=== PATIENT | male | born 1945 | race Caucasian/White ===

== ENCOUNTER 2021-05-15 07:29 | Emergency (ER) | payer MEDICARE ==
[~2021-05-15] VITALS: Ht 180.3 cm; Wt 70.0 kg
--- NOTE | 2021-05-15 08:09 | NUR ---
THIS IS A 75 YEAR OLD MALE WHO C/O OF SOB, BLOOD IN URINE, FEVER, GAONA X 2DAYS. PT HAS A HX OF COLO-VESICULAR FISTULA. PT PLACED ON [employer] SINUS, CONTINOUS SP02, RA AND CYCLE VS
[2021-05-15] MEDS ORDERED: SODIUM CHLORIDE FLUSH 10ML SYR IVF ONE (09:30)
--- NOTE | 2021-05-15 09:32 | NUR ---
PIV STARTED, DISCUSSED PLAN OF CARE. PT VERBALIZED UNDERSTANDING, WARM BLANKETS GIVEN
[2021-05-15 09:36] LABS: BASOPHILS % (AUTO) 0 % (0-1); EOSINOPHILS % (AUTO) 0 % (1-7); LYMPHOCYTES % (AUTO) 2 % (22-44); MEAN CORPUSCULAR HEMOGLOBIN 31.8 pg (27.5-34.5); MEAN CORPUSCULAR HGB CONC 33.7 g/dL (33.2-36.2); MEAN PLATELET VOLUME 7.9 fL (7.4-10.4); MONOCYTES % (AUTO) 3 % (2-9); NEUTROPHILS % (AUTO) 95 % (42-75); PLATELET COUNT 187 x10^3/uL (130-400); RED BLOOD COUNT 4.77 x10^6/uL (4.38-5.82); RED CELL DISTRIBUTION WIDTH 13.4 % (9.4-14.8)
[2021-05-15 09:50] LABS: ALANINE AMINOTRANSFERASE 40 U/L (12-78); ANION GAP 4 mmol/L (5-15); CALCIUM 8.3 mg/dL (8.5-10.1); CHLORIDE 104 mmol/L (98-107); CREATININE 0.98 mg/dL (0.7-1.3)
[2021-05-15 09:52] LABS: ALKALINE PHOSPHATASE 61 U/L (45-117); BILIRUBIN,TOTAL 2.5 mg/dL (0.2-1.0); TOTAL PROTEIN 7.1 g/dL (6.4-8.2)
[2021-05-15 09:56] LABS: MICROSCOPIC INDICATED
[2021-05-15] MEDS ORDERED: CEFTRIAXONE 1,000 MG in DEXTROSE 5% 50 ML IVPB ONE (11:30)
--- NOTE | 2021-05-15 11:52 | NUR ---
MEDICATED PER MAR
--- NOTE | 2021-05-15 11:55 | NUR ---
BLOOD CULTURE DRAWN PRIOR TO ANTIBX
[2021-05-15 13:14] VITALS: BP 109/66
--- NOTE | 2021-05-15 13:14 | NUR ---
Patient/Caregiver given discharge instructions and they have confirmed that they understand the instructions. Patient ambulatory with steady gait. NAD, all questions answered appropriately, denies additional needs at this time. No personal belongings left in room after discharge.
== END 2021-05-15 13:16 | disposition home or self-care (01) ==
LOC: ED 07:59
DX: N30.00 Acute cystitis without hematuria (principal); D72.829 Elevated white blood cell count, unspecified
CPT/HCPCS: 36415; 80053; 81001; 83605; 85025; 87040; 87086; 96365; 99285; J0696